=== PATIENT | female | born 1975 | race Caucasian/White ===

== ENCOUNTER 2018-07-28 08:00 | Outpatient (CLI) | payer OTHER ==
[2018-07-28 18:55] LABS: ALBUMIN/GLOBULIN RATIO 1.3 (1.0-2.2); BILIRUBIN,TOTAL 0.5 mg/dL (0.2-1.0); CALCIUM 8.8 mg/dL (8.5-10.3); CREATININE 0.7 mg/dL (0.4-1.0)
[2018-07-28 18:58] LABS: BASOPHILS % (AUTO) 0.5 %; EOSINOPHILS # (AUTO) 0.1 10^3/uL (0.0-0.7); EOSINOPHILS % (AUTO) 2.5 %; HGB - HEMOGLOBIN 11.9 g/dL (12.0-16.0); LYMPHOCYTES # (AUTO) 1.3 10^3/uL (1.5-3.5); LYMPHOCYTES % (AUTO) 30.2 %; MEAN CORPUSCULAR HEMOGLOBIN 24.5 pg (27.0-31.0); MEAN CORPUSCULAR HGB CONC 32.9 g/dL (32.0-36.0); MEAN CORPUSCULAR VOLUME 74.6 fL (81.0-99.0); MEAN PLATELET VOLUME 9.8 fL (7.9-10.8); MONOCYTES # (AUTO) 0.3 10^3/uL (0.0-1.0); MONOCYTES % (AUTO) 7.1 %; NEUTROPHILS # (AUTO) 2.5 10^3/uL (1.5-6.6); NEUTROPHILS % (AUTO) 59.7 %; PLT - PLATELET COUNT 163 10^3/uL (130-450); RED BLOOD COUNT 4.83 10^6/uL (4.20-5.40); RED CELL DISTRIBUTION WIDTH 16.5 % (12.0-15.0); WHITE BLOOD COUNT 4.1 x10^3/uL (4.8-10.8)
[2018-07-28 19:13] LABS: THYROID STIMULATING HORMONE 1.38 uIU/mL (0.34-5.60)
[2018-07-28 19:24] LABS: FOLATE 17.33 ng/mL (5.90 - >24.8)
[2018-07-30 15:03] LABS: ANA SCREEN NEGATIVE (NEGATIVE)
== END 2018-07-28 08:01 | disposition home or self-care (01) ==
LOC: LAB.N 08:00
PROVIDERS: ATTEND Nurse Practitioner
DX: R53.83 Other fatigue (principal); E55.9 Vitamin D deficiency, unspecified; Z84.89 Family history of other specified conditions
CPT/HCPCS: 36415; 80053; 82306; 82607; 82746; 84443; 85025; 86038

== ENCOUNTER 2018-08-13 15:15 | Outpatient (CLI) | payer OTHER ==
--- NOTE | 2018-08-14 15:56 | Mammography Report ---
Reason: MAMMOGRAPHIC SCREENING FOR BREAST CANCER Procedure Date: 08/13/2018 Accession Number: [id number] / [id number] Procedure: [facility] - Screening Mammo Dig Bilat CPT Code: FULL RESULT: EXAM: Screening Mammo Dig Bilat DATE: 08/13/2018 4:00 PM CLINICAL HISTORY: Screening mammogram TECHNIQUE: Bilateral CC and MLO views were obtained. COMPARISON: None FINDINGS: There are scattered fibroglandular densities. There are benign-appearing lymph nodes. No suspicious masses, clustered microcalcifications, or regions of architectural distortion are identified. IMPRESSION: Benign findings RECOMMENDATION: Routine annual screening unless otherwise clinically indicated. BIRADS CATEGORY 2: Benign findings STANDARD QUALIFYING STATEMENTS: 1. This examination was reviewed with the aid of Computer-Aided Detection (CAD). 2. A negative or benign imaging report should not delay biopsy if clinically suspicious findings are present. Consider surgical consultation if warrented. More than 5% of cancers are not identified by imaging. 3. Dense breasts may obscure an underlying neoplasm.
== END 2018-08-13 15:16 | disposition home or self-care (01) ==
LOC: DI 15:15
PROVIDERS: ATTEND Nurse Practitioner
DX: Z12.31 Encounter for screening mammogram for malignant neoplasm of breast (principal)
CPT/HCPCS: 77067

== ENCOUNTER 2018-08-18 13:45 | Outpatient (CLI) | payer OTHER ==
[2018-08-18 19:54] LABS: % IRON SATURATION 12 % (20-50); IRON 52 ug/dL (28-170); TOTAL IRON BINDING CAPACITY 417 ug/dL (250-450); TRANSFERRIN 298 mg/dL (192-382)
== END 2018-08-18 13:46 | disposition home or self-care (01) ==
LOC: LAB.N 13:45
PROVIDERS: ATTEND Nurse Practitioner
DX: E53.8 Deficiency of other specified B group vitamins (principal); D50.9 Iron deficiency anemia, unspecified
CPT/HCPCS: 36415; 83540; 84466

== ENCOUNTER 2018-09-15 11:16 | Outpatient (CLI) | payer OTHER | END 2018-09-15 11:17 | disposition home or self-care (01) | LOC: SC 11:16 | PROVIDERS: ATTEND Internal Medicine Pulmonary Disease | DX: G47.10 Hypersomnia, unspecified (principal); R41.89 Other symptoms and signs involving cognitive functions and awareness; G47.8 Other sleep disorders; R06.83 Snoring | CPT/HCPCS: 99203; 99212 ==

== ENCOUNTER 2018-11-17 09:46 | Outpatient (CLI) | payer OTHER | END 2018-11-17 09:47 | disposition home or self-care (01) | LOC: SC 09:46 | PROVIDERS: ATTEND Internal Medicine Pulmonary Disease | DX: G47.33 Obstructive sleep apnea (adult) (pediatric) (principal) | CPT/HCPCS: 99212; 99213 ==

== ENCOUNTER 2019-02-02 16:07 | Outpatient (CLI) | payer OTHER | END 2019-02-02 16:08 | disposition home or self-care (01) | LOC: SC 16:07 | PROVIDERS: ATTEND Nurse Practitioner Family | DX: G47.33 Obstructive sleep apnea (adult) (pediatric) (principal) | CPT/HCPCS: 99212; 99214 ==

== ENCOUNTER 2019-05-04 16:16 | Outpatient (CLI) | payer OTHER | END 2019-05-04 16:17 | disposition home or self-care (01) | LOC: SC 16:16 | PROVIDERS: ATTEND Nurse Practitioner Family | DX: G47.33 Obstructive sleep apnea (adult) (pediatric) (principal); R53.83 Other fatigue | CPT/HCPCS: 99212; 99214 ==

== ENCOUNTER 2019-06-29 06:06 | Day surgery (SDC) | payer OTHER ==
[2019-06-29] MEDS ORDERED: KETOROLAC 30 MG/ML VIAL IVP ONE (06:07)
[2019-06-29] MEDS ORDERED: MIDAZOLAM 2 MG/2 ML VIAL IVP ONE (06:07)
[2019-06-29] MEDS ORDERED: fentaNYL 250 MCG/5 ML VIAL IVP ONE (06:07)
[2019-06-29] MEDS ORDERED: LIDOCAINE-MPF 2% 5 ML VIAL IM ONE (06:07)
[2019-06-29] MEDS ORDERED: PROPOFOL 200 MG/20 ML VIAL IVP ONE (06:07)
[2019-06-29] MEDS ORDERED: HYDROmorphone 1 MG/ML CARPUJECT IVP ONE (06:07)
[2019-06-29] MEDS ORDERED: fentaNYL 100 MCG/2 ML VIAL IVP ONE (06:07)
[2019-06-29] MEDS ORDERED: ONDANSETRON 4 MG/2 ML VIAL IVP ONE (06:07)
[2019-06-29] MEDS ORDERED: DEXAMETHASONE 4 MG/ML VIAL IVP ONE (06:07)
[2019-06-29] MEDS ORDERED: ACETAMINOPHEN 1,000 MG/100 ML 100 ML IV ONE (06:07)
[2019-06-29] MEDS ORDERED: ROCURONIUM 50 MG/5 ML VIAL IVP ONE (06:07)
[2019-06-29] MEDS ORDERED: CEFAZOLIN SODIUM IN 0.9 % NACL 2 GM/100 ML BAG IV ONE (06:37)
[2019-06-29] MEDS ORDERED: LACTATED RINGERS 1,000 ML IV ONE ×4 (06:55→16:35)
--- NOTE | 2019-06-29 06:56 | ANESTHESIA ---
Pre-Anesthesia VS, & Labs - Diagnosis Trismus/Jaw pain - Procedure R arthroplasty w/prosthetic joint replacement, L Temporomandibular joint meniscectomy Vital Signs: Temp Pulse Resp BP Pulse Ox 36.4 C L 82 16 123/85 H 97 06/29/19 06:47 06/29/19 06:47 06/29/19 06:47 06/29/19 06:47 06/29/19 06:47 Height 5 ft 6 in Weight (kg) 92.7 kg - NPO >8 hours - Is Patient ?: Waiver signed - Lab Results Lab results reviewed: Yes Fish Bones: 06/29/19 06:55 Home Medications and Allergies Home Medications: Ambulatory Orders Cholecalciferol (Vitamin D3) [Vitamin D] 2,000 unit PO DAILY 06/15/[address] [Voltaren] 75 mg PO BIDWM 06/15/19 RX: Sertraline HCl 200 mg PO DAILY 06/15/19 RX: Trazodone HCl 50 - 100 mg PO QPM PRN 06/15/19 RX: Vitamin B Complex 1 each PO DAILY 06/15/19 clonazePAM [Clonazepam] 0.5 mg PO BID PRN 06/15/19 Cholecalciferol (Vitamin D3) [Vitamin D] 2,000 unit PO DAILY 06/15/[address] [Voltaren] 75 mg PO BIDWM 06/15/19 Sertraline HCl 200 mg PO DAILY 06/15/19 Trazodone HCl 50 - 100 mg PO QPM PRN 06/15/19 Vitamin B Complex 1 each PO DAILY 06/15/19 clonazePAM [Clonazepam] 0.5 mg PO BID PRN 06/15/19 Allergies/Adverse Reactions: Allergies Allergy/AdvReac Type Severity Reaction Status Date / Time No Known Drug Allergies Allergy Verified 06/15/19 13:45 Anes History & Medical History - Anesthetic History Anesthesia Complications: reports: No previous complications Family history of Anesthesia Complications: Denies Family history of Malignant Hyperthermia: Denies - Medical History Cardiovascular: reports: None Pulmonary: reports: Sleep apnea, CPAP use Gastrointestinal: reports: None Urinary: reports: None Musculoskeletal: reports: None Endocrine/Autoimmune: reports: None Skin: reports: Other Smoking Status: Current every day smoker (vape) - Surgical History Eyes Ears Nose Throat (EENT):  Dermatologic: Skin cancer surgery Exam General: Oriented x3, Cooperative Dental: WNL, Other (click with jaw opening) Mouth Openin Fingerbreadth Neck Mobility: Normal Mallampati classification: II Thyromental Distance: 4-6 cm Respiratory: Lungs clear, Normal breath sounds Cardiovascular: Regular rate Neurological: Normal speech Cognitive Status: Within normal limits Plan Anesthesia Type: General Consent for Procedure(s) Verified and Reviewed: Yes Code Status: Attempt Resuscitation ASA classification: 2-Mild systemic disease Is this case an emergency?: No
[2019-06-29 06:59] LABS: BASOPHILS # (AUTO) 0.1 10^3/uL (0.0-0.1); BASOPHILS % (AUTO) 1.3 %; EOSINOPHILS # (AUTO) 0.2 10^3/uL (0.0-0.7); EOSINOPHILS % (AUTO) 3.4 %; HGB - HEMOGLOBIN 10.7 g/dL (12.0-16.0); LYMPHOCYTES # (AUTO) 1.4 10^3/uL (1.5-3.5); LYMPHOCYTES % (AUTO) 28.5 %; MEAN CORPUSCULAR HEMOGLOBIN 20.9 pg (27.0-31.0); MEAN CORPUSCULAR HGB CONC 30.7 g/dL (32.0-36.0); MEAN CORPUSCULAR VOLUME 68.2 fL (81.0-99.0); MONOCYTES # (AUTO) 0.4 10^3/uL (0.0-1.0); MONOCYTES % (AUTO) 8.6 %; NEUTROPHILS # (AUTO) 2.8 10^3/uL (1.5-6.6); PLT - PLATELET COUNT 255 10^3/uL (130-450); RED BLOOD COUNT 5.12 10^6/uL (4.20-5.40); RED CELL DISTRIBUTION WIDTH 19.5 % (12.0-15.0); WHITE BLOOD COUNT 4.8 x10^3/uL (4.8-10.8)
[2019-06-29] MEDS ORDERED: SCOPOLAMINE PATCH TOP ONE (07:10)
[2019-06-29] MEDS ORDERED: SODIUM CHLORIDE 0.9% 50 ML ONE (07:19)
[2019-06-29] MEDS ORDERED: MINERAL OIL/PETROLAT OPHTH OINT ONE (07:19)
[2019-06-29] MEDS ORDERED: LIDOCAINE MPF 2%-EPI 1:200000 20 ML VIAL ONE (07:20)
[2019-06-29] MEDS ORDERED: EPINEPHrine 1 MG/ML AMP ONE ×2 (07:20→09:03)
[2019-06-29] MEDS ORDERED: BACITRACIN OINT TOP ONE (07:20)
[2019-06-29] MEDS ORDERED: BUPIVACAINE 0.25%-EPI 1:200000 PF 30 ML VIAL ONE (07:20)
[2019-06-29] MEDS ORDERED: BACITRACIN 50,000 UNIT VIAL ONE ×2 (07:21→07:23)
[2019-06-29] MEDS ORDERED: CHLORHEXIDINE GLUCONATE 15 ML UDC PO ONE (07:23)
[2019-06-29] MEDS ORDERED: OXYMETAZOLINE HCL 100 SPRAYS BOTTLE NAS ONE (07:26)
[2019-06-29 07:45] LABS: CREATININE 0.9 mg/dL (0.4-1.0)
[2019-06-29] MEDS ORDERED: EPINEPHrine 1 MG/ML AMP IVP ONE (10:17)
[2019-06-29] MEDS ORDERED: BACITRACIN 50,000 UNIT VIAL TOP ONE (10:18)
[2019-06-29] MEDS ORDERED: BUPIVACAINE 0.25%-EPI 1:200000 PF 10 ML VIAL SUBQ ONE (15:15)
[2019-06-29] MEDS ORDERED: IBUPROFEN 800 MG TABLET PO PRN (15:56)
[2019-06-29] MEDS ORDERED: MORPHINE 2 MG/ML CARPUJECT IVP PRN (15:56)
[2019-06-29] MEDS ORDERED: oxyCODONE 5 MG TABLET PO PRN (15:57)
[2019-06-29] MEDS ORDERED: ONDANSETRON 4 MG/2 ML VIAL IVP PRN (15:58)
[2019-06-29] MEDS ORDERED: HYDROmorphone 0.5 MG/0.5 ML SYRINGE ONE ×2 (16:23→16:42)
--- NOTE | 2019-06-29 17:10 | OPERATIVE REPORT ---
DATE OF SERVICE: 06/29/2019 Physician: Poncho Agee DDS PREOPERATIVE DIAGNOSES 1. 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 2. Chronic pain of the mandible. 3. 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 POSTOPERATIVE DIAGNOSES 1. 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 2. Chronic pain of the mandible. 3. 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 PROCEDURE PERFORMED 1. Total joint arthroplasty of the right temporomandibular joint with prosthetic joint replacement. 2. Diskectomy of the left temporomandibular joint with cartilage graft from the left ear for replacement of the disc. PRIMARY SURGEON: Poncho Agee DDS TIMEKEEPER: Janessa ANESTHESIA TYPE: General anesthesia via nasoendotracheal intubation. ESTIMATED BLOOD LOSS: 100 mL INTRAVENOUS FLUIDS: Per anesthesia records. COMPLICATIONS: None. IMPLANTS: In the right temporomandibular joint the following Biomet implants were placed: A TMJ small sized fossa and a medium sized condylar head prosthesis; 6 screws were used to secure the condylar head prosthesis, and 5 screws were used to secure the fossa. DRAINS, PACKS, CATHETERS: A Lobo catheter was placed intraoperatively and removed prior to the patient's emerging from anesthesia. INDICATIONS FOR PROCEDURE: Patient is a 44-year-old female who has had pain in the bilateral temporomandibular joints for years. Recently, the pain became bad enough that it caused her to have difficulty eating and speaking, and it caused her to lose sleep almost every night, and it also caused frequent severe headaches. She was evaluated clinically and radiographically, and it was decided that total joint arthroplasty on the right as well as discectomy on the left was indicated. The risks, benefits, and alternatives of this plan were discussed with the patient including pain, swelling, bleeding, infection, damage to nerves causing paralysis of the face, paresthesia of the areas of the face innervated by the third branch of the trigeminal nerve, poor cosmesis, scarring, sialocele formation, malocclusion, hardware failure, and lack of improvement in her temporomandibular joint symptoms. Adequate time was given to answer all questions and informed consent was obtained. DESCRIPTION OF PROCEDURE: The patient was brought to the main operating room and placed in a supine position on the operating table. General anesthesia was induced by the anesthesia team, and the airway was secured with a nasal endotracheal tube. The tube was secured to the septum with a 2-0 silk suture. The eyes were protected with Lacri-Lube and corneal reyes. All pressure points were padded, and the arms were tucked. The tube was then secured to the forehead in the usual fashion. The patient was prepped and draped in the standard sterile fashion for TMJ surgery, bilateral, including using a urologic draped to allow access for the mouth, and using 10/10 drapes to isolate the nose and mouth and from the bilateral joints. It should be noted, however, that prior to this prep and drape, Andie loops were placed on the right, on the left and in the anterior to allow for intermaxillary fixation. Also, a throat pack was placed, and the patient's mouth was rinsed and brushed with chlorhexidine mouth rinse. Local anesthesia was not used because of the need for nerve testing, and instead 1:50,000 epinephrine was injected in the right preauricular and submandibular skin; 5 mL of epinephrine were used in this location. Attention was directed first to the right preauricular skin. An incision was made about 2.5 cm long. The incision was carried sharply through skin. Electrocautery was used to control bleeding. The nerve stimulator was used throughout the entire dissection, dissected bluntly downward to the temporalis muscle, went deep to the temporal fascia, and in this plane encountered the superior aspect of the zygomatic arch. Used a #9 periosteal elevator to then elevate the periosteum off of the zygomatic arch, working in a downward direction. Also dissected in a plane very near to the cartilage of the external auditory meatus in order to avoid the vessels and the nerve. Dissected down to the joint, identified the joint capsule. An incision was made through the joint capsule. Bleeding from small vein was controlled with electrocautery. Used #9 to strip off all the soft tissue from the fossa and to strip off all the soft tissue from the condylar head. The remnants of the disk were removed, but no identifiable disk could be appreciated. Attention was then turned to the right submandibular region. An incision was made with a 15 blade through skin down to platysma. The skin was undermined about 1 cm in all directions to allow for easy closure and good exposure. Began using a nerve stimulator during the dissection from the platysma and down to the pterygomasseteric sling. This dissection was carried out bluntly. The facial artery and vein were not accounted, neither was the marginal mandibular branch of the facial nerve. The pterygomasseteric sling was incised with electrocautery on the inferior border of the mandible, and a #9 periosteal elevator was used to expose the lateral aspect of the right mandibular ramus and angle. The 2 dissections were made to connect, and the area was irrigated. A bone clamp was placed on the inferior border of the mandible to allow for manipulation of the mandible. Using channel retractors, the temporomandibular joint condylar head was isolated. Using rotary instruments, the condylar head was removed; first the most superior portion, which was found to be very, very large and had to be removed in small portions because it was so large it could not fit out through the access hole. It was sectioned like a third molar horizontally in order to be removed. The lateral pterygoid muscle was carefully teased off of the anterior pole of the condylar head, and the condylar head was discarded. Then, the mandible was pushed superiorly, introducing the neck of the condyle into the dissection. The channel retractors were again used, and the neck was removed all the way down to the coronoid notch. It was smoothed with a rasp. The rasp was then also used on a reciprocating handpiece to smooth out the articular eminence and create a platform parallel with the Vassar horizontal plane. Using a trial fossa, a small sized fossa was selected and placed. It happened several times that we had to remove this small fossa and turn our attention back to the mandibular ramus and back to the coronoid notch area because there continued to be interference from this area with the fossa. Finally, after several attempts in about an hour, we had good clearance from the coronoid notch area with the artificial fossa. The implant was opened and placed. It was secured to the zygomatic arch with five screws. . Attention was then directed into the patient's mouth, and the patient was placed in intermaxillary fixation. It was necessary to rescrub and had to turn our attention back to the right preauricular area. It was verified now that we had good clearance from the fossa. Then it was necessary to try out the condylar head prosthesis and, after some small amount of reduction of the lateral cortex of the superior aspect of the ramus with a rasp, the condylar head prosthesis fit very nicely and very parallel to the posterior border of the mandible. A standard right condylar head was opened and placed in the site, and 3 screws were used to hold it in place. With the condyle now fixated in place, the patient was taken out of intermaxillary fixation, and occlusion was verified to be stable and repeatable. Attention was then directed back to the right and right preauricular incision and submandibular incision, and 3 additional screws were placed. This was done after scrubbing back in again. The condyle and fossa were verified to be stable, and the site was rinsed with bacitracin irrigation. The deep layers were then closed with 4-0 Vicryl suture, taking care to get tight closure over the implant itself. The skin was then closed with 5-0 Prolene suture. At this point, attention was turned to the left side. To the left preauricular area, 3.5 mL of 1:50,000 epinephrine were injected. A 15 blade was used to incise through the skin to make a preauricular incision. The rest of the dissection was carried out bluntly and, using a nerve stimulator, it was carried out in identical fashion to the dissection on the right only with less exposure of the zygomatic arch because only a discectomy was planned. Once the joint was entered, it was easy to identify the disk and to retract it posteriorly using clamp. Once it was retracted posteriorly, we could cut around it and remove the entire disk. Once the disk was removed, it was apparent that there was an enormous perforation right in the middle of the disk. The perforation was 5 mm in diameter, and the posterior band was almost completely atrophied, only the anterior band remained intact. Bipolar electrocautery was used to control bleeding in the retrodiscal tissues. The site was irrigated copiously. An incision was made in the left postauricular skin. Dissection was carried out down to the auricular cartilage of the conchal bowl. A 1.2 x 1.2 cm piece of auricular cartilage was removed. It was placed inside of the joint as a graft to prevent adhesions and scar tissue formation. The site was then irrigated copiously with bacitracin irrigation. The deep layers were closed with 4-0 Vicryl suture, the subdermal layers were also closed with 4-0 Vicryl suture and the skin was closed with 5-0 Prolene suture. The patient's mouth was cleansed. The patient's face was cleansed. The eyes were rinsed with BSS and the corneal reyes were removed. All franko were removed from the neck and the face, which had been placed to retain the towels. It should be noted that prior to taking down the drapes, we had already closed up the left preauricular incision as well with 4-0 Vicryl suture and 5-0 Prolene suture. The suture was removed from the nasal septum. The Andie loops were left in place in case the patient had problems with malocclusion. Later on, we could hopefully use the Andie loops to guide her back into place into a proper maximum intercuspation. Care of the patient was turned to the Anesthesia team. The patient was extubated uneventfully. She was transferred to the PACU in stable condition. TD: 06/29/2019 16:25 LINDA
[2019-06-29 17:14] VITALS: BP 122/89
[2019-06-29] MEDS ORDERED: oxyCODONE 5 MG TABLET ONE (17:19)
== END 2019-06-29 06:07 | disposition home or self-care (01) ==
LOC: SDS 06:06
PROVIDERS: ATTEND Dentist Oral and Maxillofacial Surgery
PROC: 09B1XZZ Excision of Left External Ear, External Approach (ICD-10-PCS; 2019-06-29)
PROC: 0RRC0JZ Replacement of Right Temporomandibular Joint with Synthetic Substitute, Open Approach (ICD-10-PCS; principal; 2019-06-29 07:30)
PROC: 0RU Upper Joints, Supplement (ICD-10-PCS; 2019-06-29 07:30)
DX: M26.69 Other specified disorders of temporomandibular joint (principal); G47.30 Sleep apnea, unspecified; F17.290 Nicotine dependence, other tobacco product, uncomplicated; F41.9 Anxiety disorder, unspecified; F32.9 Major depressive disorder, single episode, unspecified; G47.9 Sleep disorder, unspecified
CPT/HCPCS: 21240; 21243; 36415; 80048; 85025; A9270; C1713; C1776; J0690; J1170; J3490; J7120

== ENCOUNTER 2020-02-02 16:09 | Outpatient (CLI) | payer OTHER ==
[2020-02-02 16:49] VITALS: BP 105/72
--- NOTE | 2020-02-02 16:49 | SLEEP CARE CONSULTATION ---
Information from patient questionnaire entered by Melinda Brunson. I have reviewed and concur with the information entered by Melinda Brunson. This document represents the service I personally performed and the decisions made by me, Lamar Mota, RN, MSN, [employer]BI[employer]OUNGE [employer]IVER. History of Present Illness Previous diagnosis: Mild, Obstructive Sleep Apnea-Hypopnea Syndrome Reason for follow up: other (9 month) Accompanied by: Spouse Equipment type: CPAP Equipment obtained from: [employer] Mask style: Full face (Katrina View) Mask brand: Respironics Backup mask available: Yes (old mask ) Last cushion change: a month Prior sleep studies: Yes CPAP Compliance Data - Data Reviewed with Patient Average duration of nightly device use: 6H 12M Compliance rate %: 55 Current pressure setting (cmH2O): 11-13 Humidity settin Heated hose settin Average residual AHI: 2.0 Average large leak: 1s Subjective Missed days of use due to: reports: other (reduced use due to surgical pain on head from jaw surgery ) Patient concerns: reports: mask discomfort. denies: aerophagia, air blowing in eyes, mask leak noise, condensation in mask/hose, nasal congestion, dry mouth, nose, throat, epistaxis Observed to snore while using device: No Current pressure setting perceived as: comfortable On therapy, patient: reports: sleeping better, awakening more refreshed, being more awake and alert during the day, more rested overall. denies: drowsiness while driving Initial [place] Sleepiness Scale score: 8 Current [place] Sleepiness Scale score: 10 Allergies and Home Medications Known drug allergies: No Home medication list reviewed: Yes (added vitamin D / no other changes from may 20 ) Allergy and home medication list: Medication Name (generic/name brand) Strength & Dosage Clonazepam 0.5mg tab one twice daily prn Trazodone HCL 100mg tab - 1 daily at bedtime prn Sertraline HCL 100mg tab two daily Review of Systems Review of systems same as previous: No (Right and left jaw surgery and R prothestic for TMJ) Physical Exam Blood Pressure: 105/72 Cuff size: wrist Heart Rate: 97 O2 Saturation: 82 Height: 5 ft 6 in Weight: 196 lb 3.2 oz Body Mass Index: 31.6 BMI Classification: Obese Impression and Plan 1. Obstructive Sleep Apnea-Hypopnea Syndrome, mild , with fair treatment compliance and good apnea control. On CPAP therapy, the patient has better sleep quality and is more rested overall. Compliance fell initially due to surgery on jaws then better with healing. Now compliance has fallen again due to nerve pain that has increased with healing around temporal and jaw area where mask headgear sits. I looked at other mask styles and none are better. Thus I wonder if the Pad A Cheek thick cloth barriers might make her mask more comfortable so I gave her a pad a cheek pamphlet information to order and sample shown. She is to contact the person to make if no sample to meet her needs. Patient's apnea severity and rationale for treatment to reduce apnea, improve sleep quality and reduce cardiovascular and cerebrovascular events was reviewed. I also reviewed the benefit of consistent device use of CPAP for anxiety / depression . She will follow up in a few months to recheck compliance. * Continue CPAP pressure at 11-13 cmH2O * Try Pad A cheek * Notify me if snoring with mask or feeling that the pressure is too much or too little * Attempt to lose weight * Call this office if any problems using CPAP * Return for follow up in 3 months , or sooner if concerns arise Time Spent with Patient (minutes): 20 I spent 100% of this visit face to face with the patient with greater than 50% of this was spent time counseling the patient and coordination of care.
== END 2020-02-02 16:10 | disposition home or self-care (01) ==
LOC: SC 16:09
PROVIDERS: ATTEND Nurse Practitioner Family
DX: G47.33 Obstructive sleep apnea (adult) (pediatric) (principal); E66.9 Obesity, unspecified; Z68.31 Body mass index [BMI] 31.0-31.9, adult
CPT/HCPCS: 99212; 99213

== ENCOUNTER 2020-04-28 10:46 | Outpatient (CLI) | payer OTHER ==
--- NOTE | 2020-04-28 10:12 | SLEEP CARE CONSULTATION ---
Information from patient questionnaire entered by Janessa Dumont. I have reviewed and concur with the information entered by Janessa Dumont. This document represents the service I personally performed and the decisions made by me, Lamar Mota, RN, MSN, SACK CLEANER. History of Present Illness Service Date and Time: 04/28/2020 09 Previous diagnosis: Mild, Obstructive Sleep Apnea-Hypopnea Syndrome AHI: 10.2 (in 2018(3%) Reason for follow up: three month Equipment type: CPAP Equipment obtained from: [employer] (getting supplies as needed) Mask style: Full face (Katrina View) Backup mask available: Yes (old mask ) Last cushion change: a month ago Prior sleep studies: Yes Year and Where: 2018 - [facility] Type of Sleep Study: Home sleep study CPAP Compliance Data - Data Reviewed with Patient Average duration of nightly device use: 5.5 Compliance rate %: 13.3 (90 days) Current pressure setting (cmH2O): 11-13 Humidity settin Heated hose settin Average residual AHI: 1.9 (90% pressure 12.5cmH20) Average large leak: 0 Subjective Missed days of use due to: reports: other (tenderness of skin from topical skin cancer treatment where mask sits at tip of nose. ) Patient concerns: denies: aerophagia, mask discomfort, air blowing in eyes, mask leak noise, condensation in mask/hose, nasal congestion, dry mouth, nose, throat, epistaxis Observed to snore while using device: No Current pressure setting perceived as: comfortable On therapy, patient: reports: sleeping better, awakening more refreshed, being more awake and alert during the day, more rested overall. denies: drowsiness while driving Initial [place] Sleepiness Scale score: 8 (in 2018) Allergies and Home Medications Home medication list reviewed: No (no changes ) Review of Systems Review of systems same as previous: No (skin cancer tip of nose - topical treatment 6 weeks ago ) Physical Exam Height: 5 ft 6 in Weight: 185 lb (home ) Body Mass Index: 29.8 BMI Classification: Overweight Impression and Plan 1. Obstructive Sleep Apnea-Hypopnea Syndrome, mild, with poor treatment compliance and good apnea control. On CPAP therapy, the patient has better sleep quality and is more rested overall. Patient is pleased with benefit of treatment when able to use. Break in use was due to inability to use CPAP from tenderness from CPAP mask at skin cancer site recently treated. Patient is to resume use of CPAP now that her skin cancer is healed better. If mask continues to be uncomfortable, then a mask refitting is advised. She is advised to contact her DME to if continued problems and I will prescribe specific mask change if needed. She likes this mask style and would like to continue this style for now. Since she is overweight with BMI of 29 nearing obesity she is advised to continue to work on weight loss. I counseled her on the similar health risks of obesity and obstrutive sleep apnea. Her increase in activity will off set some of the obesity health risks. I also discussed the benefit of a diet consultation. She is advised to discuss her weight loss goals and referral to a medical secretary teacher with her PCP with discussion of how the BMI is a guideline for use in striving for best weight her overall health. I also explained how her weight affects her apnea severity and CPAP pressure requirements. Her current CPAP pressure range will adjust for some weight loss. Patient counseled to contact this office if pressure discomfort or aerophagia. Patient's apnea severity and rationale for treatment to reduce apnea, improve sleep quality and reduce hypertenision, cardiovascular and cerebrovascular events was reviewed. Use of CPAP with all sleep will maximize benefit of treatment. * Resume auto CPAP pressure at 11-13 cmH2O * Consider new mask style * Notify me if snoring with mask or feeling that the pressure is too much or too little * Continue to lose weight * Call this office if any problems using CPAP * Return for follow up in 2 months , or sooner if concerns arise Visit Type: Telehealth Phone (to reduce risk of Covid 19 exposure) Patient Location: Home Location of Provider: Home Patient agrees and consents to this telehealth visit type: Yes Patient agrees to have their insurance billed: Yes Time Spent with Patient (minutes): 16 Provider Statement: I spent 100% of the Telehealth Phone Call with the patient with greater than 50% spent counseling the patient and coordination of care.
== END 2020-04-28 10:47 | disposition home or self-care (01) ==
LOC: SC 10:46
PROVIDERS: ATTEND Nurse Practitioner Family
DX: G47.33 Obstructive sleep apnea (adult) (pediatric) (principal); E66.3 Overweight; Z68.29 Body mass index [BMI] 29.0-29.9, adult